=== PATIENT | male | born 1970 | race Caucasian/White ===

== ENCOUNTER 2019-06-12 19:24 | Emergency (ER) | payer BC, OTHER ==
[~2019-06-12] VITALS: Ht 182.9 cm; Wt 90.7 kg
[2019-06-12] MEDS ORDERED: OXYCONTIN15 MG PO (19:37)
[2019-06-12] MEDS ORDERED: PRILOSEC OTC20 MG PO (19:37)
[2019-06-12] MEDS ORDERED: MIRALAX17 G1 PO (19:37)
[2019-06-12 20:19] LABS: URINE BILIRUBIN NEGATIVE (Negative); URINE BLOOD NEGATIVE (Negative); URINE CLARITY CLEAR; URINE COLOR YELLOW; URINE GLUCOSE-RANDOM NEGATIVE (Negative); URINE KETONES NEGATIVE (Negative); URINE LEUKOCYTES-REFLEX NEGATIVE (Negative); URINE NITRITE-REFLEX NEGATIVE (Negative); URINE PROTEIN NEGATIVE (Negative); URINE UROBILINOGEN 0.2 E.U./dl (0.2-1.0)
[2019-06-12 23:27] LABS: ABSOLUTE BASOPHILS 0.1 thou/uL (0.0-0.2); ABSOLUTE EOSINOPHILS 0.1 thou/uL (0.0-0.7); ABSOLUTE LYMPHOCYTES 3.2 thou/uL (0.8-5.3); ABSOLUTE MONOCYTES 0.5 thou/uL (0.0-1.2); ABSOLUTE NEUTROPHILS 6.8 thou/uL (1.6-8.1); BASOPHILS 0.7 %; EOSINOPHILS 1.1 %; HEMATOCRIT 49.2 % (42.0-52.0); HEMOGLOBIN 16.6 gm/dL (14.0-18.0); LYMPHOCYTES 29.9 %; MCHC 33.7 g/dL (28.0-37.0); MCV 85.9 fL (80.0-100.0); MONOCYTES 4.9 %; MPV 8.3 fl. (7.2-11.1); NUCLEATED RBCS 0 /100WBC; PLATELET COUNT* 178 thou/uL (150-400); POLYS 63.4 %; RBC 5.73 mil/uL (4.50-6.00); RDW-CV 15.3 % (10.5-14.5); WBC 10.7 thou/uL (4.0-11.0)
[2019-06-12 23:34] LABS: CALCIUM 9.4 mg/dL (8.5-10.1); CREATININE 1.1 mg/dL (0.6-1.3); POTASSIUM 5.2 mmol/L (3.5-5.1)
[2019-06-12 23:38] LABS: ALBUMIN 4.1 g/dL (3.4-5.0); TOTAL BILIRUBIN 0.2 mg/dL (<0.1-1.0); TOTAL PROTEIN 7.2 g/dL (6.4-8.2)
[2019-06-13] MEDS ORDERED: BENTYL 20 MG TA20 M1 PO (00:57)
[2019-06-13] MEDS ORDERED: ULTRAM 50MG TAB50 MG PO (00:57)
[2019-06-13 01:21] VITALS: BP 142/88
[2019-06-13 06:11] LABS: PLATELET ESTIMATE ADEQUATE
== END 2019-06-13 01:29 | disposition home or self-care (01) ==
LOC: M.ERS 19:24
PROVIDERS: Personal Emergency Response Attendant
DX: K56.600 Partial intestinal obstruction, unspecified as to cause (principal); K59.00 Constipation, unspecified; F17.200 Nicotine dependence, unspecified, uncomplicated; Z88.0 Allergy status to penicillin